=== PATIENT | male | born 1985 | race Caucasian/White ===

== ENCOUNTER 2024-05-23 18:19 | Inpatient (IN) | payer BC ==
[2024-05-23] MEDS ORDERED: NA CHLORIDE 0.9% 1,000 ML ONE ×2 (18:57→20:33)
[2024-05-23] MEDS ORDERED: FAMOTIDINE 20 MG/2 ML VIAL IV ONE (18:57)
[2024-05-23] MEDS ORDERED: ONDANSETRON 4 MG/2 ML VIAL ONE (18:57)
[2024-05-23 19:14] LABS: Absolute Lymphocytes (CBC) 0.2 K/uL (0.7-4.9); Absolute Monocytes 0.5 K/uL (0.1-1.3); Absolute Neutrophil 21.1 K/uL (1.8-8.0); Basophils % 0.2 % (0-1.3); Hematocrit 52.9 % (39.6-49.0); Hemoglobin 18.5 g/dL (13.6-17.9); MCH 31.7 pg (27.0-35.0); MCV 90.4 fL (80-100); MPV 7.6 fL (7.6-11.3); Monocytes % 2.1 % (3.3-12.3); Neutrophils % 96.7 % (41.7-73.7); Nucleated Red Blood Cells % 0.1 % (0-0); Platelets 323 thou/uL (152-406); RBC Red Blood Cell Count 5.85 M/uL (4.33-5.43); Red Cell Distribution Width 13.2 % (12.1-15.2)
[2024-05-23 19:33] LABS: Albumin 4.5 g/dL (3.4-5.0); Albumin/Globulin Ratio 1.1 (1.1-1.8); Anion Gap 14.6 mEq/L (5.0-15.0); Bilirubin Total 0.8 mg/dL (0.2-1.0); Potassium 4.6 mEq/L (3.5-5.1); Protein, Total 8.5 g/dL (6.4-8.2)
--- NOTE | 2024-05-23 19:48 | RAD REPORT ---
EXAMINATION: Abdomen Pelvis Wo Contrast CLINICAL INDICATION: Male, 39 years old.ABD PAIN TECHNIQUE: CT abdomen and pelvis was performed, without IV contrast, as per department protocol. Axia l, sagittal and coronal reconstructions were obtained. One or more of the following dose reduction techniques were used: Automated exposure control, adjustment of the mA and/or kV according to the pat ient size, and/or iterative reconstruction. Unless otherwise specified, incidental findings do not require dedicated imaging follow-up. [id number]. IV CONTRAST: Not administered. COMPARISON: None FINDINGS: The lack of intravenous contrast limits the sensitivity of this exam for evaluation of solid visceral organs, vascular structures, and retroperitoneum. LOWER CHEST: No acute process identified.No significant pericardial effusion. UPPER GI: Fluid distended stomach. LIVER: Hepatic steatosis, but otherwise unremarkable. GALLBLADDER/BILE DUCTS: No biliary ductal dilatation.? PANCREAS: No mass, ductal dilation, or bryce-pancreatic fluid. SPLEEN: Unremarkable. ADRENALS: No adrenal masses. KIDNEYS AND URETERS: No hydronephrosis.Limited evaluation for renal lesions in the absence of IV cont rast.No renal calculi. ABDOMINAL AORTA AND OTHER VESSELS: Mild atherosclerotic changes. PERITONEUM: No abnormal free fluid. No free air. LYMPH NODES: No pathologic lymphadenopathy. ABDOMINAL WALL: Unremarkable SMALL BOWEL/COLON: Small bowel has normal course and caliber. No colonic wall thickening or pericolon ic inflammatory changes.Normal appendix. Mild diverticulosis without diverticulitis. Submucosal fatty deposition at the distal small bowel may reflect sequela of chronic or remote enteritis. No melissa dence of active inflammation. URINARY BLADDER: Underdistended but grossly unremarkable. REPRODUCTIVE ORGANS: No pathologic process. MUSCULOSKELETAL: ADDITIONAL FINDINGS: None. IMPRESSION: No acute findings within the abdomen or pelvis. No appendicitis. Incidental findings as noted above.
[2024-05-23] MEDS ORDERED: NA CHLORIDE 0.9% 100 ML ONE (19:50)
[2024-05-23] MEDS ORDERED: PIPERACIL/TAZO 3.375 GM VIAL IV ONE (19:51)
--- NOTE | 2024-05-23 20:05 | ER ---
Nurse's Notes [facility] Name: Brendon Carrasquillo Age: 39 yrs Sex: Male : 1985 Arrival Date: 05/23/2024 Time: 18:19 Bed 5 Private MD: Diagnosis: Acute kidney failure, unspecified;Dehydration;Nausea with vomiting, unspecified;Diarrhea, unspecified Presentation: 05/23 18:42 Chief complaint: Patient states: N/V/D with abdominal cramping and muscles locking up ll1 for 1 day. Coronavirus screen: Client denies travel out of the [place] in the last 14 days. Ebola Screen: Patient denies travel to an Ebola-affected area in the 21 days before illness onset. Initial Sepsis Screen: Does the patient meet any 2 criteria? No. Patient's initial sepsis screen is negative. Does the patient have a suspected source of infection? No. Patient's initial sepsis screen is negative. Risk Assessment: Do you want to hurt yourself or someone else? Patient reports no desire to harm self or others. Onset of symptoms was May 23, 2024. 18:42 Method Of Arrival: Ambulatory ll1 18:42 Acuity: ERWIN 2 ll1 Triage Assessment: 18:45 General: Appears in no apparent distress. Behavior is cooperative, appropriate for age, bp anxious. Pain: Complains of pain in abdomen. EENT: No deficits noted. Neuro: No deficits noted. Cardiovascular: Rhythm is sinus tachycardia. Respiratory: No deficits noted. GI: Reports lower abdominal pain, diarrhea, nausea. : No signs and/or symptoms were reported regarding the genitourinary system. Derm: No deficits noted. Musculoskeletal: No deficits noted. Historical: - Allergies: 18:42 No Known Allergies; ll1 - PMHx: 18:42 Hypertensive disorder; ll1 - PSHx: 18:42 None; ll1 - Immunization history:: Adult Immunizations up to date. - Infectious Disease History:: Denies. - Social history:: Smoking status: Patient denies any tobacco usage or history of. - History obtained from: . Screenin:53 [facility] ED Fall Risk Assessment (Adult) History of falling in the last 3 months, bp including since admission No falls in past 3 months (0 pts) Confusion or Disorientation No (0 pts) Intoxicated or Sedated No (0 pts) Impaired Gait No (0 pts) Mobility Assist Device Used No (0 pt) Altered Elimination No (0 pt) Score/Fall Risk Level 0 - 2 = Low Risk Oriented to surroundings. Abuse screen: Denies threats or abuse. Denies injuries from another. Nutritional screening: No deficits noted. Tuberculosis screening: No symptoms or risk factors identified. Assessment: 18:45 General: Appears in no apparent distress. uncomfortable, Behavior is cooperative, bp appropriate for age, anxious. GI: Abdomen is non-distended. 19:10 General: Appears comfortable, Behavior is calm, cooperative, anxious, quiet, Denies ss fever, feeling ill. General: Pt reports he drinks ETOH daily, beers. Last drink was yesterday afternoon . Pain: Denies pain. Neuro: Level of Consciousness is awake, alert, obeys commands, Oriented to person, place, time, situation, Instrumental Music Teacher are equal bilaterally Moves all extremities. Full function Speech is normal, Facial symmetry appears normal. Cardiovascular: Capillary refill < 3 seconds is brisk in bilateral fingers Rhythm is sinus tachycardia. Respiratory: Airway is patent Respiratory effort is even, unlabored, Respiratory pattern is regular, symmetrical. GI: Reports diarrhea, nausea, vomiting, since this morning. EENT: Derm: Skin is intact, is healthy with good turgor, Skin is dry, Skin is pink, warm \T\ dry. normal. 19:11 Reassessment: Pt to CT at this time VIA wheelchair. ss 19:50 Reassessment: No changes from previously documented assessment. Patient and/or family jr13 updated on plan of care and expected duration. Pain level reassessed. Patient is alert, oriented x 3, equal unlabored respirations, skin warm/dry/pink. Denies nausea. Patient states feeling better. Patient states symptoms have improved. Vital Signs: 18:42 BP 174 / 106; Pulse 140; Resp 20; Temp 98.2; Pulse Ox 100% ; Weight 92.99 kg; Height 5 ll1 ft. 9 in. ; Pain 5/10; 19:10 Pulse 119; ss 20:20 BP 143 / 97; Pulse 93; Resp 18; Pulse Ox 97% on R/A; jr13 18:42 Body Mass Index 30.27 (92.99 kg, 175.26 cm) ll1 18:42 Pain Scale: Adult ll1 ED Course: 18:22 Patient arrived in ED. im 18:38 Arm band placed on. ll1 18:39 Lobo Campoverde PA is PHCP. cp 18:39 Nini Jordan is Attending Physician. cp 18:43 Triage completed. ll1 18:51 Faisal Torres, RN is Primary Nurse. bp 18:53 Patient has correct armband on for positive identification. bp 19:06 Inserted saline lock: 20 gauge in right forearm, using aseptic technique. Blood af3 collected. Flushed with 10 mL NS. 19:06 EKG done, by business technology professor. af3 19:23 Abdomen In Process Unspecified. EDMS 20:03 Ron Castillo MD is Hospitalizing Provider. ci 20:03 Blood Culture Adult (2) Sent. jr13 20:03 Lactate w/ 2H reflex if indic. Sent. jr13 20:03 Protime (+inr) Sent. jr13 20:03 Ptt, Activated Sent. jr13 20:10 Blood Culture Adult (2) Sent. jr13 20:10 Lactate w/ 2H reflex if indic. Sent. jr13 20:10 Protime (+inr) Sent. jr13 20:10 Ptt, Activated Sent. jr13 20:48 Primary Nurse role handed off by Faisal Torres, RN rv1 20:59 Ann Bustillo, ELSA is Primary Nurse. jr13 21:03 No provider procedures requiring assistance completed. Patient admitted, IV remains in [facility]. 21:04 Provided Education on: Need for admission. [facility] Administered Medications: 19:00 Drug: Famotidine IVP 20 mg IVP once; dilute with 10 mL 0.9% NaCl; give over 2 minutes ha1 Route: IVP; Site: right antecubital; 19:30 Follow up: Response: No adverse reaction; Nausea is decreased [facility] 19:00 Drug: NS 0.9% IV 1000 ml IV at 1 bolus Per protocol; to be given as a bolus over 60 ha1 minutes Route: IV; Rate: 1 bolus; Site: right antecubital; 21:02 Follow up: Response: No adverse reaction; IV Status: Completed infusion [facility] 19:02 Drug: Ondansetron IVP 4 mg IVP once; over 2 minutes Route: IVP; Site: right antecubital;ha1 21:02 Follow up: Response: No adverse reaction jr13 20:02 Drug: Piperacillin-Tazobactam IVPB 3.375 grams IVPB once over 60 mins; (mix in NS 100 jr13 mL) Route: IVPB; Infused Over: 60 mins; Site: right antecubital; 21:00 Follow up: Response: No adverse reaction; IV Status: Completed infusion jr13 20:40 Drug: NS 0.9% IV 1000 ml IV at 1000 ml once; to be given as a bolus over 60 minutes ha1 Route: IV; Rate: 1000 ml; Site: right antecubital; 21:01 Follow up: Response: No adverse reaction; IV Status: Infusion continued upon admission jr13 21:01 Follow up: Response: No adverse reaction; IV Status: Completed infusion jr13 20:40 Drug: Acetaminophen PO 1000 mg PO once Route: PO; ha1 21:00 Follow up: Response: No adverse reaction; Marked relief of symptoms jr13 Medication: 19:10 VIS not applicable for this client. Outcome: 20:05 Decision to Hospitalize by Provider. ci 21:03 Admitted to Med/surg accompanied by tech, via wheelchair, room 222, with chart, jr13 21:03 Condition: stable 21:03 Instructed on the need for admit, 21:20 Patient left the ED. jr13 Signatures: Dispatcher [employer] EDMS Sydnie Harris RN RN ss Lobo Campoverde PA PA cp Peltier, Brian, RN RN bp Samia Trejo RN RN 1 Aide Chaparro RN RN [facility] Hannah Garrido [facility] Yasmin Hurst Nini Jordan Ashley [facility] Ann Bustillo RN RN jr13
--- NOTE | 2024-05-23 20:05 | EDPHYS ---
Physician Documentation [facility] Name: Brendon Carrasquillo Age: 39 yrs Sex: Male : 1985 Arrival Date: 05/23/2024 Time: 18:19 Bed 5 Private MD: ED Physician Nini Jordan HPI: 05/23 19:03 This 39 yrs old Male presents to ER via Ambulatory with complaints of Vomiting, ci Diarrhea. 19:03 Patient is a 39-year-old male with PMH hypertension who presents to the ED with chief ci complaint of nausea/vomiting/diarrhea. Patient reports he had over 10 episodes of nausea/vomiting and over 10 episodes of diarrhea. No hematochezia, hematemesis or melena. Patient reports his muscles were locking up all day when he was vomiting. Feels like he is dehydrated. Has some generalized abdominal cramping. Denies fever, urinary symptoms. No sick contacts with similar symptoms, no no inciting new foods.. Historical: - Allergies: 18:42 No Known Allergies; ll1 - PMHx: 18:42 Hypertensive disorder; ll1 - PSHx: 18:42 None; ll1 - Immunization history:: Adult Immunizations up to date. - Infectious Disease History:: Denies. - Social history:: Smoking status: Patient denies any tobacco usage or history of. - History obtained from: . ROS: 19:03 Constitutional: Negative for fever, chills, and weight loss, ci 19:03 Cardiovascular: Negative for chest pain, orthopnea, 19:03 Abdomen/GI: Positive for abdominal pain, nausea, vomiting, and diarrhea, Exam: 19:03 Constitutional: This is a well developed, well nourished patient who is awake, alert, ci and in no acute distress. Head/Face: Normocephalic, atraumatic. Eyes: Pupils equal round and reactive to light, extra-ocular motions intact. Lids and lashes normal. Conjunctiva and sclera are non-icteric and not injected. Cornea within normal limits. Periorbital areas with no swelling, redness, or edema. ENT: Nares patent. No nasal discharge, no septal abnormalities noted. Tympanic membranes are normal and external auditory canals are clear. Oropharynx with no redness, swelling, or masses, exudates, or evidence of obstruction, uvula midline. Mucous membranes moist. Neck: Trachea midline, no thyromegaly or masses palpated, and no cervical lymphadenopathy. Supple, full range of motion without nuchal rigidity, or vertebral point tenderness. No Meningismus. Chest/axilla: Normal chest wall appearance and motion. Nontender with no deformity. No lesions are appreciated. 19:03 Cardiovascular: Rate: tachycardic, Rhythm: regular, Pulses: Pulses are 2+ in right radial artery and left radial artery. 19:03 Abdomen/GI: Palpation: soft, moderate abdominal tenderness, in all quadrants, rebound tenderness, is not appreciated, voluntary guarding, involuntary guarding, 19:07 ECG was reviewed by the Attending Physician. EKG shows sinus tachycardia nonspecific ST ci changes, heart rate 123, QTc 398 Vital Signs: 18:42 BP 174 / 106; Pulse 140; Resp 20; Temp 98.2; Pulse Ox 100% ; Weight 92.99 kg; Height 5 ll1 ft. 9 in. ; Pain 5/10; 19:10 Pulse 119; ss 20:20 BP 143 / 97; Pulse 93; Resp 18; Pulse Ox 97% on R/A; jr13 18:42 Body Mass Index 30.27 (92.99 kg, 175.26 cm) ll1 18:42 Pain Scale: Adult ll1 MDM: 18:50 Medical Screening Exam initiated ci 19:07 Differential diagnosis: Nonspecific abd pain, gastritis, pancreatitis, diverticulitis, ci viral gastroenteritis, gastroenteritis. Differential diagnosis: Dehydration. Data reviewed: vital signs, nurses notes. ED course: Patient presents for intractable nausea/vomiting and diarrhea, appears clinically dehydrated, tachycardic on arrival. Will obtain abdominal labs, CT abdomen/pelvis, chest x-ray. Patient was given Zofran, IV fluids and Pepcid. Suspicion for viral gastroenteritis. Patient denies blood in stool, doubt infectious diarrhea. Plan for p.o. challenge, if able to tolerate p.o. can likely discharge with antiemetic and referred to gastroenterology.. 20:02 ED course: Leukocytosis with WBC 21, heart rate 119, meet SIRS criteria, blood ci cultures, lactate obtained, empirically covered with Zosyn. Patient also noted to have MASOUD, will admit for further management and investigation. Discussed with Dr. Castillo who accepted patient for admission. CT abdomen/pelvis with no SBO, or perforation.. 18:51 Order name: CBC with Diff ci 04/ 19:21 Interpretation: Abnormal: WBC 21.80. ci 04/ 18:51 Order name: CMP; Complete Time: 19:45 ci 04/ 18:51 Order name: Lipase; Complete Time: 19:45 ci 04/ 18:51 Order name: Urinalysis w/ reflexes ci 04 19:22 Order name: Blood Culture Adult (2) ci 04 19:22 Order name: Lactate w/ 2H reflex if indic.; Complete Time: 20:26 ci 04/03 20:26 Interpretation: Abnormal. ci 04/ 19:22 Order name: Protime (+inr); Complete Time: 20:26 ci 04 19:22 Order name: Ptt, Activated; Complete Time: 20:26 ci 04/ 19:41 Order name: CREATININE WHOLE BLOOD; Complete Time: 19:45 EDMS 05/23 20:10 Order name: Urinalysis w/ reflexes EDMS 05/23 20:10 Order name: CBC with Automated Diff EDMS 05/23 20:10 Order name: CBC with Automated Diff EDMS 05/23 20:10 Order name: Comprehensive Metabolic Panel EDMS 05/23 20:10 Order name: Comprehensive Metabolic Panel EDMS 05/23 20:10 Order name: Creatine Phosphokinase EDMS 05/23 20:10 Order name: Creatine Phosphokinase EDMS 05/23 20:10 Order name: Creatine Phosphokinase EDMS 05/23 20:10 Order name: Creatine Phosphokinase EDMS 05/23 19:23 Order name: Abdomen ; Complete Time: 20:02 EDMS 05/23 18:51 Order name: IV Saline Lock; Complete Time: 19:05 ci 0403 18:51 Order name: Labs collected and sent; Complete Time: 19:05 ci 04/03 19:22 Order name: Accucheck; Complete Time: 20:09 ci 0403 19:22 Order name: Cardiac monitoring; Complete Time: 20:09 ci 0403 19:22 Order name: EKG - Nurse/Tech; Complete Time: 19:58 ci 0403 19:22 Order name: IV Saline Lock - Large Bore; Complete Time: 20:09 ci 0403 19:22 Order name: O2 Per Protocol; Complete Time: 20:09 ci 0403 19:22 Order name: O2 Sat Monitoring; Complete Time: 20:09 ci 04 19:22 Order name: Vital Signs; Complete Time: 20:09 ci Administered Medications: 19:00 Drug: Famotidine IVP 20 mg IVP once; dilute with 10 mL 0.9% NaCl; give over 2 minutes ha1 Route: IVP; Site: right antecubital; 19:30 Follow up: Response: No adverse reaction; Nausea is decreased 13 19:00 Drug: NS 0.9% IV 1000 ml IV at 1 bolus Per protocol; to be given as a bolus over 60 ha1 minutes Route: IV; Rate: 1 bolus; Site: right antecubital; 21:02 Follow up: Response: No adverse reaction; IV Status: Completed infusion 13 19:02 Drug: Ondansetron IVP 4 mg IVP once; over 2 minutes Route: IVP; Site: right antecubital;ha1 21:02 Follow up: Response: No adverse reaction 13 20:02 Drug: Piperacillin-Tazobactam IVPB 3.375 grams IVPB once over 60 mins; (mix in NS 100 jr13 mL) Route: IVPB; Infused Over: 60 mins; Site: right antecubital; 21:00 Follow up: Response: No adverse reaction; IV Status: Completed infusion jr13 20:40 Drug: NS 0.9% IV 1000 ml IV at 1000 ml once; to be given as a bolus over 60 minutes ha1 Route: IV; Rate: 1000 ml; Site: right antecubital; 21:01 Follow up: Response: No adverse reaction; IV Status: Infusion continued upon admission jr13 21:01 Follow up: Response: No adverse reaction; IV Status: Completed infusion jr13 20:40 Drug: Acetaminophen PO 1000 mg PO once Route: PO; ha1 21:00 Follow up: Response: No adverse reaction; Marked relief of symptoms jr13 Disposition Summary: 05/23/24 20:05 Hospitalization Ordered Notes: Hospitalization Status: Inpatient Admission ci Provider: Ron Castillo Location: Telemetry/MedSur (Inpatient) ci Condition: Stable ci Problem: new ci Symptoms: have improved ci Bed/Room Type: Standard ci Room Assignment: 222(05/23/24 20:14) rv1 Diagnosis - Acute kidney failure, unspecified ci - Dehydration ci - Nausea with vomiting, unspecified ci - Diarrhea, unspecified ci Forms: - Medication Reconciliation Form ci - SBAR form ci - Leadership Thank You Letter ci Signatures: Dispatcher [employer] EDSamia Mcdermott, RN RN ll1 Aide Chaparro RN RN ha1 Hannah Garrido rv1 Nini Jordan Jamike RN RN jr13 Corrections: (The following items were deleted from the chart) 18:51 18:51 CBC+H.LAB.BRZ ordered. EDMS EDMS 18:51 18:51 COMPREHENSIVE METABOLIC PANEL+C.LAB.BRZ ordered. EDMS EDMS 18:51 18:51 LIPASE+C.LAB.BRZ ordered. EDMS EDMS 18:51 18:51 Urinalysis+U.LAB.BRZ ordered. EDMS EDMS 19:23 18:51 Abdomen Pelvis W Con+CT.RAD.BRZ ordered. EDMS EDMS 20:14 20:05 ci rv1
[2024-05-23] MEDS ORDERED: ONDANSETRON 4 MG/2 ML VIAL IV PRN (20:06)
--- NOTE | 2024-05-23 20:09 | P.HP ---
Certification for Inpatient Patient admitted to: Inpatient With expected LOS: >2 Midnights Practitioner: I am a practitioner with admitting privileges, knowledge of patient current condition, hospital course, and medical plan of care. Services: Services provided to patient in accordance with Admission requirements found in Title 42 Section 412.3 of the Code of Federal Regulations Patient History Date of Service: 05/23/24 Reason for admission: N/V/D History of Present Illness: 39 yrs old Male with past medical history of hypertension brought to ER with nausea vomiting and diarrhea. Patient states that started insidiously this morning. Had multiple bouts of nausea vomiting and diarrhea. No sick contacts. No hematemesis or melena. No fever or chills. Denies any recent travel. Associated with cramping abdominal pain. Associated with generalized weakness as well. Denies any chest pain or shortness of breath. Has muscle weakness and cramping of the muscles as well. He feels dehydrated and has generalized weakness. Denies any dysuria. Patient was assessed in the ER and is admitted for further management of acute kidney injury and acute gastroenteritis Allergies No Known Allergies Allergy (Unverified 05/23/24 21:34) Home medications list reviewed: Yes Home Medications: Amlodipine [Norvasc] 10 mg PO DAILY 05/23/24 Dextroamphetamine/Amphetamine [Adderall 10 mg Tablet] 10 mg PO DAILY 05/23/24 Dextroamphetamine/Amphetamine [Adderall Xr 20 mg Capsule] 20 mg PO BID 05/23/24 - Past Medical/Surgical History Past Medical History: Reviewed- Non-Contributory -: Hypertension Past Surgical History: Reviewed- Non-Contributory -: Denies any significant past surgical history - Family History Family History: Reviewed- Non-Contributory - Social History Smoking Status: Never smoker Review of Systems 10-point ROS is otherwise unremarkable Physical Examination - Vital Signs Temperature: 98.2 F Blood Pressure: 174/102 Pulse: 132 Respirations: 18 Pulse Ox (%): 94 - Physical Exam General: Alert, In no apparent distress, Oriented x3 HEENT: Atraumatic, Normocephalic Neck: Supple, No Thyromegaly Respiratory: Clear to auscultation bilaterally, Normal air movement Cardiovascular: Normal pulses, Regular rate/rhythm Capillary refill: <2 Seconds Gastrointestinal: Soft and benign, W/out hepatosplenomegaly Musculoskeletal: No clubbing, No swelling Integumentary: No rashes, No breakdown Neurological: Normal speech, Normal strength at 5/5 x4 extr, Cranial nerves 3-12 intact Lymphatics: No axilla or inguinal lymphadenopathy - Studies Laboratory Data (last 24 hrs) 05/23/24 05/23/24 19:04 19:04 WBC 21.80 H Hgb 18.5 H Hct 52.9 H Plt Count 323 Sodium 133 L Potassium 4.6 BUN 24 H Creatinine 2.27 H Glucose 215 H Total Bilirubin 0.8 AST 21 ALT 76 H Alkaline Phosphatase 97 Lipase 26 Assessment and Plan - Plan Acute gastroenteritis Lactic acidosis Started on IV hydration Started on IV antibiotic Monitor closely Zofran as needed Hyponatremia Leukocytosis IV normal saline Accelerated hypertension H/o Hypertension Antihypertensives titrated Continue home medications and titrate as needed Acute kidney injury Dehydration Possibly prerenal Nephrology consulted Monitor renal parameters Electrolytes monitor and replace accordingly Elevated LFTs Monitor LFTs closely and GI/DVT prophylaxis Advanced directive full code Discharge Plan: Home Plan to discharge in: 48 Hours - Advance Directives Does patient have a Living Will: No Does patient have a Durable POA for Healthcare: No - Code Status/Comfort Care Code Status: Full Code Time Spent Managing Pts Care (In Minutes): 48
[2024-05-23 20:23] LABS: PTT, Activated Partial Thromb 26.1 SECONDS (27.2-37.4); Protime INR 1.15
[2024-05-23] MEDS ORDERED: ACETAMINOPHEN 500 MG TAB ONE (20:33)
[2024-05-23] MEDS: NA CHLORIDE 0.9% 1,000 ML IV SCH (21:42)
[2024-05-23 22:09] LABS: Band Neutrophils 23 % (0-1); Differential Total Cells Count 100; Lymphocytes 1 % (15-42); Monocytes 2 % (0-10); Segmented Neutrophils 74 % (40-80)
[2024-05-23 22:10] LABS: Blood Morphology Comment NOT SEEN (NOT SEEN); Platelet Estimate ADEQ
[2024-05-23] MEDS: CEFTRIAXONE 1,000 MG in NA CHLORIDE 0.9% 50 ML IVPB SCH (22:44)
[2024-05-23] MEDS: METRONIDAZOLE 500mg IVPB 500 MG/100 ML BAG IV SCH (22:44)
[2024-05-23 22:59] VITALS: BMI 30.2
[2024-05-24 05:42] LABS: Specific Gravity 1.014 (1.005-1.030); Urine Bilirubin NEGATIVE (Negative); Urine Blood Negative (Negative); Urine Clarity Clear (Clear); Urine Color Colorless (Yellow); Urine Glucose NEGATIVE (Negative); Urine Ketones NEGATIVE (Negative); Urine Microscopic Reflex YN NO UMIC; Urine Nitrite NEGATIVE (Negative); Urine Protein NEGATIVE (Negative); Urine Urobilinogen Normal (Normal); Urine pH 5.5 (5.0-7.0)
[2024-05-24 07:23] LABS: Absolute Eosinophils 0.1 K/uL (0-0.5); Absolute Lymphocytes (CBC) 0.6 K/uL (0.7-4.9); Absolute Monocytes 0.9 K/uL (0.1-1.3); Absolute Neutrophil 9.9 K/uL (1.8-8.0); Basophils % 0.1 % (0-1.3); Eosinophils % 0.7 % (0-4.4); Hemoglobin 15.5 g/dL (13.6-17.9); Lymphocytes % 5.5 % (15.3-44.8); MCH 31.8 pg (27.0-35.0); MCHC 35.2 g/dL (32.0-36.0); MCV 90.3 fL (80-100); MPV 7.9 fL (7.6-11.3); Monocytes % 8.2 % (3.3-12.3); Neutrophils % 85.5 % (41.7-73.7); Nucleated Red Blood Cells % 0.1 % (0-0); Platelets 238 thou/uL (152-406); RBC Red Blood Cell Count 4.87 M/uL (4.33-5.43); Red Cell Distribution Width 13.4 % (12.1-15.2)
[2024-05-24 07:35] LABS: Albumin 3.2 g/dL (3.4-5.0); Anion Gap 8.6 mEq/L (5.0-15.0); Bilirubin Total 0.7 mg/dL (0.2-1.0); Globulin 3.2 g/dL (2.3-3.5); Potassium 3.6 mEq/L (3.5-5.1); Protein, Total 6.4 g/dL (6.4-8.2)
[2024-05-24] MEDS: ENOXAPARIN 40 MG/0.4 ML SQ SCH (08:53)
[2024-05-24] MEDS: AMLODIPINE 5 MG TAB PO SCH (08:53)
--- NOTE | 2024-05-24 10:36 | P.PN ---
Subjective Date of Service: 05/24/24 Chief Complaint: N/V/D Subjective: No chest pain or shortness of breath. Nausea, vomiting, diarrhea improving. No abdominal pain. No obvious bleeding. Looks comfortable in the bed. Objective: General appearance: Alert and comfortable CVS: Normal S1 and S2 Lungs: Clear to auscultation bilaterally Abdomen: Soft, bowel sounds present, no tenderness Extremities: No lower extremity edema Physical Examination - Vital Signs Temperature: 97.9 F Blood Pressure: 150/80 Pulse: 89 Respirations: 18 Pulse Ox (%): 97 - Studies Laboratory Data (last 24 hrs) 05/23/24 05/23/24 05/23/24 19:40 19:04 19:04 WBC 21.80 H Hgb 18.5 H Hct 52.9 H Plt Count 323 PT 13.0 INR 1.15 APTT 26.1 L Sodium 133 L Potassium 4.6 BUN 24 H Creatinine 2.27 H Glucose 215 H Total Bilirubin 0.8 AST 21 ALT 76 H Alkaline Phosphatase 97 Lipase 26 Assessment And Plan - Plan 1. Acute gastroenteritis: improving -Lactic acidosis improving -Continue IV fluids and antibiotics. -Supportive care and monitor closely. - WBC improving. 2. Hypertension -Antihypertensives titrated -Avoid hypotension due to acute kidney injury. 3. Acute kidney injury sec to Dehydration - Continue IV fluids, creatinine improving, monitor closely. 4. Fatty liver on CT scan: Follow-up with PCP. 5. Obesity with BMI of 30.3, follow-up with PCP 6. MildElevated LFTs -Improving, monitor closely, follow-up with PCP. Plan discussed with the patient and nursing staff, answered all questions, advance diet, if clinically improves, probably home tomorrow.
[2024-05-24] MEDS: ACETAMINOPHEN 325 MG TABLET PO PRN (19:47)
[2024-05-24 22:31] VITALS: O2SAT 98
[2024-05-24] MEDS: METRONIDAZOLE 500mg IVPB 500 MG/100 ML BAG IV SCH (22:42)
--- NOTE | 2024-05-24 22:56 | CON ---
Date of Consultation: 05/24/2024 Chief Complaint: Acute kidney injury. History Of Present Illness: The patient is admitted for nausea, vomiting, and diarrhea. He was foun d to have elevated BUN and creatinine level. Nephrology consultation is requested for abnormal renal function test. He has nonoliguric urine output and he was started on IV fluids for acute kidney inj ury and hypovolemia. The patient is a 39-year-old man with past medical history of hypertension. He was brought to emergency room because of nausea, vomiting, and diarrhea. The patient developed sudd en onset of nausea, vomiting, and diarrhea in the morning prior to this admission yesterday. He had multiple bouts of nausea, vomiting, and diarrhea. He denied sick contacts. He denied hematemesis, m lisa. Denies fever, chills, hematuria, dysuria, difficulty with urination. He was although complai taylor of cramping abdominal pain, generalized and was complaining of generalized weakness. Denies jerry st pain, syncope, shortness of breath, wheezing, muscle cramps, urine discoloration. He was admitted to the hospital. He is on IV fluids and denies chest pain, palpitation. Review of Systems: Constitutional: Denies fevers, chills. Eyes: Denies vision changes. Ears, Nose, Mouth, and Throat: Denies sore throat, earache. Respiratory: Denies PND, orthopnea. Cardiovascular: Denies syncope, palpitation, and chest pain. GI: Complains of nausea, vomiting, multiple episodes of diarrhea. Denies bloody diarrhea. Musculoskeletal: Denies muscle aches, joint swelling. Denies gout. All other system reviewed and all are negative. Past Medical History: Hypertension. Family History: Noncontributory. Social History: Denies tobacco. Physical Examination: GENERAL: The patient is alert, oriented x3, not in acute distress. HEENT: Atraumatic, normocephalic. Anicteric sclerae. Neck: Supple. No JVD. No bruits. Cardiovascular: S1, S2. No pericardial friction rub. Abdomen: Soft, benign. No rebound. No guarding. Extremities: No edema. No clubbing. No cyanosis. Laboratory Data: WBC 21.8, hemoglobin 18.5, platelet count 323,000. Sodium 133, potassium 4.6, BUN 24, creatinine 2.27, glucose 215. AST 21, ALT 76, lipase 26, AP 97. Impression And Plan: 1. Nausea, vomiting, volume depletion, diarrhea. The patient is on IV fluids. Continue to monitor e lectrolytes. 2. The patient has hyponatremia secondary to acute kidney injury, depletional. Continue normal salin e. Check TSH. 3. Acute gastroenteritis. Monitor lactic acid. Check CT scan without contrast. 4. Acute kidney injury. Check renal ultrasound. Avoid nephrotoxic medication. Monitor CK level to rule out rhabdomyolysis. Check blood culture and urine culture. Continue antibiotics of broad spect rum. The patient is on Zofran. EB/MODL Voice ID: [id number] Report ID: [id number]
[2024-05-24 23:34] LABS: Specific Gravity 1.011 (1.005-1.030); Urine Bilirubin NEGATIVE (Negative); Urine Blood Negative (Negative); Urine Clarity Clear (Clear); Urine Color Colorless (Yellow); Urine Glucose NEGATIVE (Negative); Urine Ketones NEGATIVE (Negative); Urine Microscopic Reflex YN NO UMIC; Urine Nitrite NEGATIVE (Negative); Urine Protein NEGATIVE (Negative); Urine Urobilinogen Normal (Normal); Urine pH 6.5 (5.0-7.0)
[2024-05-25 05:26] LABS: Absolute Eosinophils 0.1 K/uL (0-0.5); Absolute Lymphocytes (CBC) 1.4 K/uL (0.7-4.9); Absolute Monocytes 1.1 K/uL (0.1-1.3); Absolute Neutrophil 6.5 K/uL (1.8-8.0); Basophils % 0.4 % (0-1.3); Eosinophils % 1.5 % (0-4.4); Hematocrit 43.1 % (39.6-49.0); Hemoglobin 15.5 g/dL (13.6-17.9); Lymphocytes % 15.5 % (15.3-44.8); MCH 32.3 pg (27.0-35.0); MCV 89.7 fL (80-100); MPV 7.9 fL (7.6-11.3); Monocytes % 12.3 % (3.3-12.3); Neutrophils % 70.3 % (41.7-73.7); Nucleated Red Blood Cells % 0.1 % (0-0); Platelets 229 thou/uL (152-406); RBC Red Blood Cell Count 4.81 M/uL (4.33-5.43); Red Cell Distribution Width 13.4 % (12.1-15.2)
[2024-05-25 05:39] LABS: ALT/SGPT 50 U/L (16-61); AST/SGOT 24 U/L (15-37); Albumin 3.3 g/dL (3.4-5.0); Albumin/Globulin Ratio 1.1 (1.1-1.8); Alkaline Phosphatase 98 U/L (45-117); Anion Gap 7.9 mEq/L (5.0-15.0); BUN Blood Urea Nitrogen 11 mg/dL (7-18); Bicarbonate 26 mEq/L (21-32); Bilirubin Direct < 0.2 mg/dL (0-0.2); Bilirubin Indirect, Calculated 0.3 mg/dL (0.2-0.8); Bilirubin Total 0.5 mg/dL (0.2-1.0); Creatine Phosphokinase 53 U/L (39-308); Glomerular Filtration Rate 106 ml/min (=/>90); Glucose Level 104 mg/dL (74-106); Potassium 3.9 mEq/L (3.5-5.1); Protein, Total 6.3 g/dL (6.4-8.2); Sodium Level 140 mEq/L (136-145)
--- NOTE | 2024-05-25 07:01 | RAD REPORT ---
EXAMINATION: US RENAL ULTRASOUND CLINICAL INDICATION: toby TECHNIQUE: Real-time ultrasonography of the abdomen was performed. COMPARISON: No prior exam. FINDINGS: RIGHT KIDNEY: Right renal length measurement: 11.0 x 5.6 x 5.4 cm. Normal in echogenicity and size. N o calculus, solid mass or hydronephrosis. LEFT KIDNEY: Left renal length measurement: 11.2 x 6.0 x 5.0 cm. Normal in echogenicity and size. No calculus, solid mass or hydronephrosis. URINARY BLADDER: Incompletely distended without gross abnormality detected. ADDITIONAL FINDINGS: None. IMPRESSION: Unremarkable renal ultrasound.
[2024-05-25 08:26] VITALS: BP 119/65; TEMP 97.7
[2024-05-25] MEDS: POTASSIUM CL SA 10 MEQ TAB PO ONE (08:29)
--- NOTE | 2024-05-25 10:22 | P.DS ---
Admission Date: 05/23/24 Discharge Date: 05/25/24 Disposition: ROUTINE DISCHARGE Discharge Condition: GOOD Reason for Admission: N/V/D Hospital Course: 1. Acute gastroenteritis: improving -Lactic acidosis improving -DC home on oral antibiotics. - WBC improved. 2. Hypertension -continue norvasc 3. Acute kidney injury sec to Dehydration - given IV fluids, creatinine improved 4. Fatty liver on CT scan: Follow-up with PCP. 5. Obesity with BMI of 30.3, follow-up with PCP 6. Mild Elevated LFTs -Improving, follow-up with PCP. Subjective: No chest pain or shortness of breath. Nausea and vomiting resolved, diarrhea improving. No abdominal pain. No obvious bleeding. Looks comfortable in the bed. Feels ready to go home. Objective: General appearance: Alert and comfortable CVS: Normal S1 and S2 Lungs: Clear to auscultation bilaterally Abdomen: Soft, bowel sounds present, no tenderness Extremities: No lower extremity edema 39-year-old patient admitted with acute gastroenteritis and acute kidney injury, he was given IV fluids, and started on IV antibiotics, his symptoms improving, when I see the patient today, he is doing well without any acute problems, nausea and vomiting resolved, tolerating diet, diarrhea improving, he feels ready to go home, otherwise no other acute issues going on so I am planning to discharge him to go home and follow-up with PCP with repeat labs. I encouraged him to drink plenty of fluids for the next few days. Vital Signs/Physical Exam: Temp Pulse Resp BP Pulse Ox 97.7 F 76 16 119/65 95 05/25/24 08:00 05/25/24 08:00 05/25/24 08:00 05/25/24 08:00 05/25/24 08:00 Laboratory Data at Discharge: WBC 9.20 thou/uL (4.3-10.9) 05/25/24 04:46 Hgb 15.5 g/dL (13.6-17.9) 05/25/24 04:46 Hct 43.1 % (39.6-49.0) 05/25/24 04:46 Plt Count 229 thou/uL (152-406) 05/25/24 04:46 PT 13.0 SECONDS (10-13.0) 05/23/24 19:40 INR 1.15 05/23/24 19:40 APTT 26.1 SECONDS (27.2-37.4) L 05/23/24 19:40 Sodium 140 mEq/L (136-145) 05/25/24 04:46 Potassium 3.9 mEq/L (3.5-5.1) 05/25/24 04:46 BUN 11 mg/dL (7-18) 05/25/24 04:46 Creatinine 0.95 mg/dL (0.70-1.30) 05/25/24 04:46 Glucose 104 mg/dL (74-106) 05/25/24 04:46 Total Bilirubin 0.5 mg/dL (0.2-1.0) 05/25/24 04:46 AST 24 U/L (15-37) 05/25/24 04:46 ALT 50 U/L (16-61) 05/25/24 04:46 Alkaline Phosphatase 98 U/L (45-117) D 05/25/24 04:46 Lipase 26 U/L (13-75) 05/23/24 19:04 Home Medications: Amlodipine [Norvasc*] 10 mg PO DAILY 05/23/24 Dextroamphetamine/Amphetamine [Adderall 10 mg Tablet] 10 mg PO DAILY 05/23/24 Dextroamphetamine/Amphetamine [Adderall Xr 20 mg Capsule] 20 mg PO BID 05/23/24 Cefdinir [Cefdinir*] 300 mg PO BID #14 cap 05/25/24 metroNIDAZOLE [Metronidazole] 500 mg PO TID #21 tab 05/25/24 New Medications: Cefdinir [Cefdinir*] 300 mg PO BID #14 cap metroNIDAZOLE [Metronidazole] 500 mg PO TID #21 tab Diet: Low sodium Activity: Ad matthew Followup: NONE,NONE [Primary Care Provider] - 1 Week (f/u with PCP in 5-7 days with CBC and CMP) Time spent managing pt's care (in minutes): 32
--- NOTE | 2024-05-25 12:20 | PN ---
Date of Progress Note: 05/25/2024 Subjective: No overnight event. Continued to have diarrhea and within normal limits. Cr eatinine down to 0.9. Diet as tolerated. Objective: Vital Signs: Temperature 97.7, pulse rate 76, blood pressure 119/65. General: Awake, alert, oriented x3, not in distress. Neck: Supple. No elevated JVD. Heart: Regular rate and rhythm. Normal S1, S2. Chest: Clear to auscultation bilaterally. No rales or wheezes. Abdomen: Soft and nontender. Extremities: No edema. Laboratory Data: Sodium 140, potassium 3.9, chloride 110, BUN 11, creatinine 0.9. White count down to 9.2 from 21,000 on admission. Assessment And Plan: This is a 39-year-old man with past medical history of hypertension, presented to the ER with abdominal pain, nausea, vomiting, and diarrhea. The patient had multiple bouts of aimee sea and vomiting. In the ER, his creatinine was elevated to 2.2, has lactic acidosis. Nephrology co nsulted for that evaluation. 1. Acute kidney injury due to dehydration, resolved. Continue IV fluids as patient has diarrhea. 2. Lactic acidosis due to dehydration. Continue IV fluid as above. 3. Abdominal pain and diarrhea, likely due to gastroenteritis. Continue IV fluid. Diet as tolerated . White count down from 21,000 to 9000 only. Thank you for allowing me to participate in the patient's care. Total time I spent 55 minutes includ ing documentation, reviewing labs, and placing orders. LEANNA Voice ID: [id number] Report ID: [id number]
== END 2024-05-25 11:46 | disposition home or self-care (01) | DRG 872 ==
LOC: ER 18:19 → EDSEX 18:19 → ERHOLD 20:06 → 2ND 20:30
PROVIDERS: ADMIT Family Medicine; ATTEND Hospitalist
DX: A41.9 Sepsis, unspecified organism (principal); N17.9 Acute kidney failure, unspecified; E87.1 Hypo-osmolality and hyponatremia; E87.21 Acute metabolic acidosis; K52.9 Noninfective gastroenteritis and colitis, unspecified; R65.20 Severe sepsis without septic shock; I10 Essential (primary) hypertension; K76.0 Fatty (change of) liver, not elsewhere classified; E66.9 Obesity, unspecified; D72.829 Elevated white blood cell count, unspecified; Z68.30 Body mass index [BMI] 30.0-30.9, adult
CPT/HCPCS: 36415; 74176; 76770; 80048; 80053; 80076; 81003; 82550; 82565; 82570; 83605; 83690; 84156; 85025; 85610; 85730; 87040; 96361; 96365; 96375; 99285; J0696; J1650; J2405; J2543; J7030